=== PATIENT | female | born 1970 | race Caucasian/White ===

== ENCOUNTER → 2020-12-06 | Outpatient (CLI) | payer BC ==
[~2020-12-06] MED LIST: CONTRAST GIVEN. MC PRN; IOHEXOL 180 MG/ML 10 ML VIAL. IJ ONE; LIDOCAINE 1% Multi-Dose 20 ML VIAL. INJ ONE
--- NOTE | 2020-12-06 11:09 | RAD ---
EXAM: Fluoroscopic guided lumbar puncture for CT myelography; Lumbar spine CT myelogram. HISTORY: Back pain and right lower extremity radiculopathy. TECHNIQUE: The risks of the procedure were discussed with the patient and written and verbal was obta ined. A timeout was performed. The patient was placed in a prone position on the fluoroscopy table an d a site overlying L3-L4 was selected for needle entry. The skin overlying this region was sterilely prepped, draped and infiltrated with 1 percent lidocaine. A 25-gauge needle was advanced into the the marcus sac and appropriate needle tip position was confirmed with spontaneous yield of cerebral spinal f luid within the needle hub. 12 cc of Omnipaque 180 intrathecal contrast was then injected into the th ecal sac. The needle was removed and a sterile bandage was placed at the needle entry site. Prone, st anding lateral neutral and flexion and extension fluoroscopic images were obtained. The patient was t hen transferred to the CT suite for the post injection CT portion of the exam. 4 fluoroscopic images were obtained for a total fluoroscopy time of 6 seconds. The patient tolerated the procedure without difficulty and was discharged in stable condition. *One or more of the following individualized dose reduction techniques were utilized for this examina tion: 1. Automated exposure control. 2. Adjustment of the mA and/or kV according to patient size. 3. Use of iterative reconstruction technique. COMPARISON: None. FINDINGS: There are transitional lumbosacral and thoracolumbar segments. For the purposes of this dic tation, the inferior most fully lumbarized segment is considered L5. Based on this numbering system, there is a rudimentary disc at S1-S2 and there are can gently nonfused transverse processes at L1, as opposed to hypoplastic T12 ribs and 4 nonrib-bearing lumbar segments. Based on this numbering system, there is 2 mm retrolisthesis of L3 on L4. There is mild S-shaped lumb ar scoliosis, with slight dextrocurvature centered at L2-L3 and levocurvature centered at L5. There i s minimal rightward lateral translation of L4 on L5. There is multilevel degenerative endplate remodeling, personally along the right aspect of L5-S1. Thi s corresponds with the level of maximum scoliotic concavity. There is disc space narrowing at this le fran. There is vacuum phenomenon within the disc spaces L4-L5 and L5-S1. There are few tiny lower thor acic and upper lumbar endplate Schmorl's nodes. There is no fracture or suspicious osseous lesion. Th ere is mild degenerative spurring and vacuum phenomenon involving the sacroiliac joints. There is no abnormal vertebral body translation between flexion and extension on fluoroscopic images. The conus terminates at L1. At T11-T12, there is moderate bilateral facet arthropathy. There is moderate right greater than left foraminal stenosis. At T12-L1, there is no stenosis. At L1-L2, there is no stenosis. At L2-L3, there is a mild disc bulge and endplate remodeling. There is mild pleural facet arthropathy . There is mild bilateral foraminal stenosis. There is mild central canal stenosis. At L3-L4, there is mild disc bulge and endplate remodeling. There is minimal bilateral facet arthropa thy. There is minimal retrolisthesis. There is mild bilateral foraminal stenosis. There is mild centr al canal stenosis. At L4-L5, there is a broad-based left paracentral to foraminal disc protrusion with minimal inferior extrusion superimposed on a disc bulge and endplate remodeling. There is mild left greater than right facet arthropathy. There is mild right and moderate left foraminal stenosis. There is moderate centr al canal stenosis. At L5-S1, there is a right foraminal to lateral disc protrusion and osteophyte complex superimposed o n a disc bulge and endplate remodeling. There is minimal bilateral facet arthropathy. There is severe right and mild left foraminal stenosis. IMPRESSION: 1. Transitional thoracolumbar and lumbosacral anatomy. For the purposes of this dictation, the last l umbar segment is considered L5. 2. Multilevel degenerative change involving the lower thoracic and lumbar spine, described in detail above. This results in moderate right greater than left foraminal stenosis at T11-T12, mild bilateral foraminal and central canal stenosis at L2-L3 and L3-L4, mild right and moderate left foraminal and moderate central canal stenosis at L4-L5, and severe right and mild left foraminal stenosis at L5-S1. Electronically signed by: Kinjal Candelario MD (12/06/2020 11:06 AM) [id number]
== END | disposition home or self-care (01) ==
LOC: RAD 08:45
PROVIDERS: ATTEND Neurological Surgery
DX: M47.26 Other spondylosis with radiculopathy, lumbar region (principal); M48.061 Spinal stenosis, lumbar region without neurogenic claudication; M25.78 Osteophyte, vertebrae; Z79.899 Other long term (current) drug therapy
CPT/HCPCS: 62304; 72132; J3490; Q9965

== ENCOUNTER → 2020-12-25 | Outpatient (CLI) | payer BC ==
[~2020-12-25] MED LIST changes: +ACET325T9 PO; +CELE200C PO; -CONTRAST GIVEN. MC PRN; +DOCU-109 PO; +HYDR-2761 PO; -IOHEXOL 180 MG/ML 10 ML VIAL. IJ ONE; -LIDOCAINE 1% Multi-Dose 20 ML VIAL. INJ ONE; +LISI10TA16 PO; +METH-562 PO
[2020-12-25 09:18] LABS: BASO % 1 % (0-3); EOS # 0.1 x10^3/uL (0.0-0.7); EOS % 2 % (0-3); HEMOGLOBIN 12.9 g/dL (12.0-15.5); LYMPH # 1.6 x10^3/uL (1.0-4.8); LYMPH % 30 % (24-48); MEAN CORPUSCULAR HEMOGLOBIN 33 pg (25-35); MEAN CORPUSCULAR HGB CONC 34 g/dL (31-37); MEAN CORPUSCULAR VOLUME 96 fL (79-100); MONO # 0.4 x10^3/uL (0.0-1.1); MONO % 7 % (0-9); NEUT # 3.2 x10^3/uL (1.8-7.7); NEUT % 60 % (31-73); PLATELET COUNT 366 x10^3/uL (140-400); RED BLOOD COUNT 3.94 x10^6/uL (3.50-5.40); RED CELL DISTRIBUTION WIDTH 12.8 % (11.5-14.5); WHITE BLOOD COUNT 5.4 x10^3/uL (4.0-11.0)
--- NOTE | 2020-12-25 09:23 | EKG ---
[facility] [address] [place] [address] Test Date: 2020-12-25 Test Time: 09:15:45 Pat Name: PAL ELIAS Department: Room: Gender: F Cardiac Cath Technician: ANASTASIIA : 1970 Requested By: REX CADENA Order Number: [id number] Reading MD: Efrain Suarez Measurements Intervals [place] Rate: 63 P: 20 RI: 168 QRS: -1 QRSD: 80 T: 14 QT: 394 QTc: 406 Interpretive Statements SINUS RHYTHM LEFTWARD AXIS QRS(T) CONTOUR ABNORMALITY CONSIDER ANTEROSEPTAL MYOCARDIAL DAMAGE POSSIBLY ABNORMAL ECG RI6.02 No previous ECG available for comparison Electronically Signed On 12-27-2020 15:51:35 CDT by Efrain Suarez
[2020-12-25 09:27] LABS: ALBUMIN 4.2 g/dL (3.4-5.0); ALBUMIN/GLOBULIN RATIO 1.4 (1.0-1.7); CALCIUM 8.1 mg/dL (8.5-10.1); CREATININE 0.6 mg/dL (0.6-1.0); GFR 105.8; POTASSIUM 4.1 mmol/L (3.5-5.1); TOTAL BILIRUBIN 0.4 mg/dL (0.2-1.0); TOTAL PROTEIN 7.2 g/dL (6.4-8.2)
== END ==
LOC: SURGPAT 08:28
PROVIDERS: ATTEND Neurological Surgery
DX: Z01.818 Encounter for other preprocedural examination (principal); R94.31 Abnormal electrocardiogram [ECG] [EKG]; M51.17 Intervertebral disc disorders with radiculopathy, lumbosacral region; M48.062 Spinal stenosis, lumbar region with neurogenic claudication
CPT/HCPCS: 36415; 80053; 85025; 87641; 93005

== ENCOUNTER 2020-12-28 07:17 | Observation (INO) | payer BC ==
[2020-12-25 08:54] VITALS: BP 154/95
[~2020-12-28] VITALS: Ht 170.2 cm; Wt 103.6 kg
[2020-12-28] VITALS (12 sets, daily range): BP systolic 128–152; BP diastolic 66–87
[~2020-12-28 07:17] MED LIST changes: +0.9 % SODIUM CHLORIDE 20 ML VIAL. IJ ONE; +BUPIVACAINE-EPI 0.5% 30 ML VIAL KIT. ONE; +DEXAMETHASONE SOD PHOS 4 MG/ML VIAL ONE; -DOCU-109 PO; +GELATIN SPONGE SIZE 100. ONE; +GLYCOPYRROLATE 1 MG/5 ML VIAL. ONE; +HYDROmorphone 2 MG/ML VIAL ONE; +IV RINGERS,LACTATED 1000ML 1,000 ML IV SCH; +KETOROLAC 60 MG/2 ML VIAL. ONE; +LIDOCAINE 2% PF 5 ML VIAL. ONE; -METH-562 PO; +MIDAZOLAM HCL/PF 2 MG/2 ML VIAL. ONE; +ONDANSETRON PF 4 MG/2 ML VIAL. ONE; +PHENYLEPHRINE 10 MG/ML VIAL. ONE; +PHENYLEPHRINE in 0.9% NACL PF 1 MG/10 ML SYRINGE. IV ONE; +PROPOFOL 10 MG/ML (20ML) VIAL. IV ONE; +REMIFENTANIL 1 MG VIAL. IV ONE; +ROCURONIUM 50 MG/5 ML VIAL. ONE; +THROMBIN TOPICAL 20,000 UNIT SPRAY.SYRN KIT TP ONE; +ceFAZolin SODIUM 1 GM in IV NORMAL SALINE 1000ML BAG 1,000 ML IRR ONE; +fentaNYL PF VIAL 100 MCG/2 ML VIAL IVP PRN
[2020-12-28] MEDS ORDERED: SUGAMMADEX SODIUM 200 MG/2 ML VIAL. IVP ONE (07:30)
[2020-12-28] MEDS ORDERED: SCOPOLAMINE 1.5MG PATCH. TD ONE (08:00)
[2020-12-28] MEDS ORDERED: REMIFENTANIL 1 MG VIAL. IV ONE (08:12)
[2020-12-28] MEDS ORDERED: PROPOFOL 50 ML IV ONE ×2 (08:14)
--- NOTE | 2020-12-28 09:08 | PREOP HP ---
DATE OF SERVICE: 12/28/2020 HISTORY OF PRESENT ILLNESS: The patient is a pleasant 50-year-old who is having difficulty with back and right leg pain. Most of the pain radiates to the posterior thigh and leg. She says the right leg can become numb as well as her right foot. The problem started in January and became worse in March of 2020. She says her pain is usually an 8/10, but it can reach 10/10. Lying down and heat help. Sitting increases her pain. She is taking Flexeril, Tylenol and Celebrex. She started physical therapy exercises at home. She has had 2 epidural steroid injections without benefit. CURRENT MEDICATIONS: Celebrex, Flexeril, lisinopril, Tylenol, hormone cream base. PAST MEDICAL HISTORY: Denies. PAST SURGICAL HISTORY: Lumbar surgery at L5-S1 in 2006, knee surgery in 2009, hysterectomy in 2018. FAMILY HISTORY: Cancer, diabetes, heart disease, spine problems. SOCIAL HISTORY: Employed in sales. . Does not smoke. Drinks alcohol 1-2 times per week. ALLERGIES: No known drug allergies. REVIEW OF SYSTEMS: A 12-point review of systems was performed and is noncontributory except that mentioned above. PHYSICAL EXAMINATION: GENERAL: Alert, pleasant, in no acute distress. HEENT: Head is normocephalic, atraumatic. SKIN: Warm and dry. MUSCULOSKELETAL: Lumbar paraspinal muscle bulk is normal, restricted range of motion of the lumbar spine, [id number] tenderness of the lumbar spine with palpation, normal range of motion of the lower extremities bilaterally. EXTREMITIES: No clubbing, cyanosis or edema. NEUROLOGIC: Alert and oriented x 3. Normal recent and remote memory, strength is 5/5 in the lower extremities bilaterally and sensory was intact to light touch in the lower extremities bilaterally except for diffuse decrease in sensation in the right foot. Reflexes were present and symmetric in the lower extremities bilaterally, positive straight leg raising on the right, negative straight leg raising on the left, normal gait. IMAGING: I reviewed a lumbar myelogram and post-myelogram CT scan. On the studies, there is stenosis of moderate degree at L4-L5 along with lateral recess narrowing. At L5-S1, there appears to be a foraminal disc herniation combined with disc bulging and hypertrophic bone associated with severe neural foraminal narrowing on the right side. ASSESSMENT AND PLAN: I believe the problems at L4-L5 and L5-S1 are responsible for her pain. She has failed to improve with conservative measures. At this point, she should undergo a transforaminal exposure at L5-S1 to remove the foraminal disc and decompress the right L5 root. At L4-L5, she should undergo a right direct laminectomy along with opening the lateral recess to relieve the spinal stenosis. I discussed all of this with her including the technique, the risk and the expected postoperative course. She understands and would like to go ahead. PASCUAL DR: Celia TID: [id number] CHRISTEN
[2020-12-28] MEDS ORDERED: NEOSTIGMINE METHYLSULFATE 5 MG/5 ML SYRINGE. ONE (09:19)
[2020-12-28] MEDS ORDERED: MORPHINE SULFATE 2 MG/ML INJ. ONE (12:00)
[2020-12-28] MEDS ORDERED: PROCHLORPERAZINE 10 MG/2 ML VIAL. ONE (12:00)
[2020-12-28] MEDS: MORPHINE SULFATE 2 MG/ML INJ. IVP PRN ×2 (12:07→12:22)
[2020-12-28] MEDS: PROCHLORPERAZINE 10 MG/2 ML VIAL. IVP PRN ×2 (12:07→13:45)
[2020-12-28] MEDS ORDERED: HYDROmorphone 2 MG/ML VIAL ONE (12:13)
[2020-12-28] MEDS ORDERED: 0.9 % SODIUM CHLORIDE 10 ML DISP.SYRIN. IV PRN (12:15)
[2020-12-28] MEDS ORDERED: MAG HYDROX/ALUMINUM HYD/SIMETH 30 ML ORAL.SUSP PO PRN (12:15)
[2020-12-28] MEDS ORDERED: diphenhydrAMINE HCL 25 MG CAPSULE PO PRN (12:15)
[2020-12-28] MEDS ORDERED: MAGNESIUM HYDROXIDE 2,400 MG/30 ML ORAL.SUSP. PO PRN (12:15)
[2020-12-28] MEDS ORDERED: NALOXONE 0.4 MG/ML VIAL. IV PRN (12:15)
[2020-12-28] MEDS ORDERED: HYDROcodone/APAP 5/325MG 1 TAB TABLET PO PRN (12:15)
[2020-12-28] MEDS ORDERED: CALCIUM CARBONATE 500 MG TAB.CHEW PO PRN (12:15)
[2020-12-28] MEDS ORDERED: fentaNYL PF VIAL 100 MCG/2 ML VIAL IVP PRN (12:15)
[2020-12-28] MEDS ORDERED: METHOCARBAMOL 750 MG TABLET PO PRN (12:15)
[2020-12-28] MEDS ORDERED: ACETAMINOPHEN 325 MG TABLET. PO PRN (12:15)
[2020-12-28] MEDS: HYDROmorphone 2 MG/ML VIAL IVP PRN ×4 (12:17→13:45)
--- NOTE | 2020-12-28 12:59 | OP ---
DATE OF SURGERY: 12/28/2020 PREOPERATIVE DIAGNOSES: 1. Lateral recess stenosis, L4-5, right. 2. Lateral recess stenosis and foraminal narrowing, right L5-S1 with right lumbar radiculopathy. POSTOPERATIVE DIAGNOSES: 1. Lateral recess stenosis, L4-5, right. 2. Lateral recess stenosis and foraminal narrowing, right L5-S1 with right lumbar radiculopathy. OPERATION PERFORMED: 1. Hemilaminotomy with microdecompression of dura and nerve root, L4-5, right. 2. Hemilaminotomy reoperation with transforaminal microdecompression of the right L5 and S1 nerve roots. The operation was done with EMG monitoring, SSEP monitoring, fluoroscopy, microscopic dissection. SURGEON: Kris Pratt M.D. JUNIOR QA ANALYST: FARNAZ Camacho, assisted with the surgery. She assisted with the exposure, the microdecompression at both levels as well as the closure. SPECIMEN: Decompression. OPERATIVE INDICATIONS: The patient is a pleasant 50-year-old who a number of years ago underwent surgery at L5-S1 and did well. She then developed significant pain, which was carefully evaluated and she was found to have 2 levels of compression of lumbar myelography. I recommended decompression at L4-5 and reoperation at L5-S1 with a foraminal decompression at that level as well because of nerve root compression in the foramen. She understood the surgery, the risks, and technique. She wished to go ahead. DESCRIPTION OF PROCEDURE: Following general endotracheal anesthesia, the patient was positioned prone on the Ravin table. Lumbar region was prepped and draped in the standard fashion. GAURI hose and AV impulse boots were applied for DVT prophylaxis. A microscope was draped, fluoroscopy was draped and brought in the field. Monitoring was established. Ancef 2 grams were given less than 1 hour prior to initiation of surgery. Using fluoroscopic guidance, incision was made extending from mid L4 to mid S1. I dissected down through skin and subcutaneous tissue, reflected the paraspinal muscles, placed a [place] microdisk retractor, brought in the microscope. Beginning at L4-5, I burred down a generous hemilaminotomy and then I trimmed away thickened ligamentum flavum. I worked laterally and inferiorly performed a generous partial foraminotomy. I was able to fully decompress the dura and the nerve root. I gently retracted the root medially. There was no significant disc problem. In the bone, a thickened ligamentum flavum had been removed and fully decompressed the region. I then went down to L5-S1 and working through the scar, I gently developed a hemilaminotomy and enlarged the previous partial foraminotomy. I then found the L5 root and followed this out laterally through the foramen where there was considerable hypertrophic bony compression. As I worked, both the S1 and the L5 roots became very well decompressed. Disc was not a significant problem. The primary problem was bony and I had excellent decompression. Following this, then I irrigated copiously with antibiotic solution. I did use a bipolar intermittently as well as small amounts of bone wax for any bone bleeding. I removed the retractor, obtained hemostasis in the muscle and I closed the wound in layers with absorbable suture. The skin was closed with a 4-0 subcuticular stitch. I felt the surgery went very well. LADY DR: Howard TID: [id number] CHRISTEN
[2020-12-28] MEDS: DOCUSATE SODIUM 100 MG CAPSULE. PO SCH ×2 (13:00→20:38)
[2020-12-28] MEDS: CELECOXIB 100 MG CAPSULE. PO SCH (13:00)
--- NOTE | 2020-12-28 13:45 | NUR ---
Arrived to unit by cart. Able to move self to the bed with assist x's 1. C/o nausea, PACU nurse gave 5mg of Compazine IV in room. Dressing lower back d/i. Able to move all extremities easily, pedal pulses + bilaterally, and warm touch. IVF's intact and infusing. GAURI's and SCD's on bilaterally. Oriented to room and controls. Side rails up x's 2 with call light in reach. Spouse, Chad, at bedside. Cont. monitor.
[2020-12-28] MEDS ORDERED: METH-562 PO (14:14)
[2020-12-28] MEDS ORDERED: DOCU-109 PO (14:14)
--- NOTE | 2020-12-28 14:16 | DISCH ---
DISCHARGE INSTRUCTIONS Condition on Discharge Condition on Discharge: Stable Activity After Discharge Activity Instructions for Disc: Activity as tolerated, Avoid exertion Other activity instructions: No driving for a week Bathing Instructions: Shower-keep dressing dry, No Tub Bath until see Lifting Instructions after Dis: No heavy lifting, No pulling or pushing, Do not lift >10 pounds Diet after Discharge Additional Diet Restrictions: resume home diet Wound Incision Care Wound/Incision Care: Ice to area for comfort Other wound/incision instructi: may remove dressing in 48 hours if dry, no soaking Contacting the after DC Call your doctor for: Concerns you may have Follow-Up Follow up with: Dr. Cadena's nurse in 2 weeks [phone] REX CADENA MD Dec 28, 2020 14:16
[2020-12-28] MEDS ORDERED: FLU VACC QUAD 21-22 (6MOS+) PF 0.5 ML SYRINGE. VAX IM ONE (15:15)
[2020-12-28] MEDS: LISINOPRIL 10 MG TABLET PO SCH (16:54)
[2020-12-28] MEDS ORDERED: BENZOCAINE/MENTHOL LOZENGE. PO PRN (18:30)
[2020-12-28] MEDS: ONDANSETRON PF 4 MG/2 ML VIAL. IVP PRN (19:01)
[2020-12-28] MEDS: POTASSIUM CL 20MEQ D5-0.45NACL 1,000 ML IV SCH (22:58)
[2020-12-29] MEDS: HYDROcodone/APAP 5/325MG 1 TAB TABLET PO PRN ×3 (00:55→12:44)
[2020-12-29] MEDS: ONDANSETRON PF 4 MG/2 ML VIAL. IVP PRN (00:56)
[2020-12-29] MEDS: POTASSIUM CL 20MEQ D5-0.45NACL 1,000 ML IV SCH (01:35)
[2020-12-29 03:00] VITALS: BP 153/71
[2020-12-29 07:00] VITALS: BP 106/58
[2020-12-29] MEDS: CELECOXIB 100 MG CAPSULE. PO SCH (08:43)
[2020-12-29] MEDS: DOCUSATE SODIUM 100 MG CAPSULE. PO SCH (08:43)
[2020-12-29] MEDS: LISINOPRIL 10 MG TABLET PO SCH (09:00)
[2020-12-29 11:00] VITALS: BP 126/64
--- NOTE | 2020-12-29 13:06 | NUR ---
Discharged instructions given and prescriptions sent via electronic to pharmacy. Answered questions and concerns. And verbalized understanding. Pain med given prior to discharge. extra dressings given and discharged home accompanied by spouse. Escorted by wheelchair.
--- NOTE | 2020-12-29 13:12 | DS ---
DATE OF DISCHARGE: 12/29/2020 DISCHARGE DIAGNOSES: Lateral recess stenosis, L4-5, right, lateral recess stenosis and foraminal narrowing, L5-S1, right with right lumbar radiculopathy. OPERATIONS PERFORMED: 1. Hemilaminotomy with microdecompression of dura and nerve root, L4-5, right. 2. Hemilaminotomy reoperation with transforaminal microdecompression of the right L5 and S1 nerve roots. OPERATIVE INDICATIONS AND HISTORY OF PRESENT ILLNESS: The patient is a pleasant 50-year-old who a number of years ago underwent surgery at L5-S1 and did well. She then developed significant recurrent pain, which was evaluated and she was found to have 2 levels of compression on the lumbar myelogram. I recommended decompression at L4-5 and a reoperation at L5-S1 with a foraminal decompression at that level to decompress the nerve. She understood the surgery, the risk and the technique and wished to go ahead. HOSPITAL COURSE: She was admitted to the floor postoperatively where she has done well. She is up ambulating in the room and in the halls. Physical therapy was initiated and instruction was given to her regarding her activities. Her pain is well controlled and she is in good condition to discharge home. She does note improvement in her right leg pain. DISCHARGE MEDICATIONS: She will resume her medications per the MRAD. DISCHARGE INSTRUCTIONS: She was instructed regarding incision care, activity restrictions and expectations for the next several weeks. She will follow up in our office in 2 weeks. She understands to call with any questions or concerns. REMY DR: Celia TID: [id number]
--- NOTE | 2020-12-29 18:22 | PATHOLOGY ---
[facility] Accession Number: [id number] . 01 Material submitted: . vertebral column - LUMBAR DISC AND DECOMPRESSION . 01 Clinical history: . LUMBAR HERNIATED DISC WITH RADICULOPATHY LUMBAR LAMINENCTOMY L4-5 LUMBAR MICRODISCECTOMY L5-S1 RE-OP . 02 Diagnosis: Segments of fibrocartilaginous and fibroadipose tissue and bone, lumbar disc and decompression: - Degenerative changes of fibrocartilaginous tissue. . (JPM:mm; 12/29/2020) [facility] 12/29/2020 1427 Local . 02 Comment: There is no evidence of an acute inflammatory process or malignancy. . (JPM:mml; 12/29/2020) . 02 Electronically signed: . Kashmir Smart MD, Pathologist NPI- [id number] . 01 Gross description: . The specimen is received in formalin, labeled "Bedford, Jada, lumbar disc decompression". Received are multiple segments of pale butcher to pink-butcher fibrous tissue admixed with fragments of gritty bone measuring 3.6 x 3.6 x 0.4 cm in aggregate dimensions. The specimen is submitted representatively in cassette A1, following light decalcification. ([facility]; 12/28/2020) [facility] 12/29/2020 1425 Local . 02 Pathologist provided ICD-10: M54.16, M51.26 . 02 CPT . 845134, [id number] Specimen Comment: A courtesy copy of this report has been sent to [phone] Specimen Comment: Report sent to Specimen Comment: A duplicate report has been generated due to demographic updates. Performed at: [address] [place] [address] [address], [place], [place] [id number] MD Uriel Rayo MD Phone: [phone] Performed at: [address] [id number] MD Kashmir Smart MD Phone: [phone]
== END 2020-12-29 11:06 | disposition home or self-care (01) ==
LOC: SURG 07:17 → 4 NORTH 12:15
PROVIDERS: ADMIT Neurological Surgery; ATTEND Neurological Surgery
DX: M48.061 Spinal stenosis, lumbar region without neurogenic claudication (principal); M54.16 Radiculopathy, lumbar region; Z90.710 Acquired absence of both cervix and uterus
CPT/HCPCS: 63030; 63042; 96374; 96375; 96376; A4213; A4364; A4930; A6254; A6257; A6258; G0378; G0379; J0690; J0780; J1100; J1170; J1885; J2250; J2270; J2370; J2405; J2704; J2710; J3010; J3480; J3490; J7030; 76000; 88304; 88311; A4222; A4223